=== PATIENT | male | born 1935 | race Caucasian/White ===

== ENCOUNTER → 2022-04-09 13:16 | Outpatient (BNVA) | payer OTHER, SELFPAY | PROVIDERS: Family Provider Internal Medicine; PCP Family Medicine; Visit Provider Internal Medicine Cardiovascular Disease | DX: I10 Essential (primary) hypertension (principal); I48.0 Paroxysmal atrial fibrillation; Z79.01 Long term (current) use of anticoagulants | CPT/HCPCS: 99213; 99214 ==

== ENCOUNTER 2022-06-12 13:47 | Outpatient (CLI) | payer OTHER, SELFPAY ==
--- NOTE | 2022-06-12 13:50 | US_ITS ---
WS: [id number] RENAL ULTRASOUND HISTORY: STAGE 3B CHRONIC KIDNEY DZ COMPARISON: None available. TECHNIQUE: 2-D and color Doppler imaging of the kidney submitted. Right kidney: 10.1 cm x 5.5 cm x 5.3 cm. Normal size kidney with moderate increased echogenicity. No solid mass or obstruction. Exophytic simp le cyst from the lower pole measures 3.6 x 3.3 x 2.6 cm. Left kidney: 10.4 cm x 4.0 cm x 4.3 cm. Normal size kidney with increased echogenicity. No hydronephrosis or cortical thinning. Aorta: Normal. Urinary Bladder: Only mildly distended bladder. Diffuse wall thickening. US/US renal BI* [id number] IMPRESSION: 1. Mild to moderate chronic medical renal disease. 2. No renal atrophy or cortical thinning. 3. Simple cyst lower pole RIGHT kidney.
== END 2022-06-12 13:48 | disposition home or self-care (01) ==
LOC: RAD 13:48
PROVIDERS: PCP Family Medicine; Visit Provider Internal Medicine Nephrology
DX: N18.32 Chronic kidney disease, stage 3b (principal); N28.1 Cyst of kidney, acquired
CPT/HCPCS: 76770

== ENCOUNTER → 2022-10-08 13:20 | Outpatient (BNVA) | payer OTHER, SELFPAY | PROVIDERS: PCP Family Medicine; Visit Provider Internal Medicine | DX: I10 Essential (primary) hypertension (principal); I48.0 Paroxysmal atrial fibrillation; Z79.01 Long term (current) use of anticoagulants | CPT/HCPCS: 99214 ==

== ENCOUNTER → 2023-07-08 13:56 | Outpatient (BNVA) | payer OTHER, SELFPAY | PROVIDERS: PCP Family Medicine; Visit Provider Internal Medicine | DX: I10 Essential (primary) hypertension (principal); I48.0 Paroxysmal atrial fibrillation; Z79.01 Long term (current) use of anticoagulants | CPT/HCPCS: 99214 ==

== ENCOUNTER → 2024-04-13 12:51 | Outpatient (BNVA) | payer OTHER, SELFPAY | PROVIDERS: PCP Family Medicine; Visit Provider Internal Medicine | DX: I10 Essential (primary) hypertension (principal); I48.0 Paroxysmal atrial fibrillation; Z79.01 Long term (current) use of anticoagulants | CPT/HCPCS: 99214 ==